=== PATIENT | female | born 2005 | race African-American/Black ===

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

== ENCOUNTER 2025-09-22 17:37 | Emergency (ER) | payer MEDICAID, OTHER ==
[~2025-09-22 17:37] MED LIST: Iopamidol 370 76% 100 ML VIAL ONE
[2025-09-22 19:19] LABS: #Basophils 0.06 10x3/uL (0.0-0.2); #Eosinophils 0.42 10x3/uL (0.0-0.7); #Monocytes 1.12 10x3/uL (0.11-0.59); #Neutrophils 7.85 10x3/uL (1.40-6.50); %Basophils 0.5 % (0.0-1.0); %Eosinophils 3.3 % (0.0-10.0); %Lymphocytes 26.3 % (28.0-48.0); %Monocytes 8.7 % (0.0-4.0); %Neutrophils 60.9 % (31.0-61.0); Hematocrit 39.7 % (36.0-47.0); Hemoglobin 12.7 g/dL (12.0-16.0); Mean Corpuscular Hemoglobin 28.5 pg (25.0-35.0); Mean Corpuscular Volume 89.0 fL (78.0-98.0); Platelet Count 337 10x3/uL (130-400); Red Blood Cell (RBC) Count 4.46 mill/uL (4.00-5.20); White Blood Cell (WBC) Count 12.87 10x3/uL (4.8-10.8)
[2025-09-22 19:34] LABS: Pregnancy Test - Urine (BHCG) Negative (Negative); Pregu Control Background? CLEAR/WHITE (CLR/WHITE); Pregu Control Bar Appear? YES (CONTROL BAR)
[2025-09-22 19:39] LABS: CAUTI Indications for Culture Pelvic or flank pain; Glucose, Urine (Dipstick) Normal (Negative); Leukocyte 250 Leu/uL (Negative); Protein, Urine (Dipstick) Negative (Neg-Trace); RBC/HPF 0-3 HPF (0-3); Specific Gravity, Urine 1.025 (1.002-1.036); WBC/HPF 21-50 HPF (0-3)
[2025-09-22 19:43] LABS: Bacteria/HPF 1+ HPF (None Seen)
[2025-09-22 19:44] LABS: Urine Culture Reflex Yes Yes
[2025-09-22 20:05] LABS: Albumin 4.1 g/dL (3.1-4.5); Chloride 105 mmol/L (98-107); Potassium 3.7 mmol/L (3.5-5.1); Sodium 142 mmol/L (136-145)
[2025-09-22 20:06] LABS: Calcium 9.4 mg/dL (7.8-10.44); Glucose 82 mg/dL (70-105)
[2025-09-22 20:07] LABS: Globulin 3.2 g/dL (2.4-3.5)
[2025-09-22 20:08] LABS: Anion Gap 16 mmol/L (10-20); Carbon Dioxide 25 mmol/L (22-29)
[2025-09-22 20:09] LABS: Alkaline Phosphatase 70 U/L (40-100); Bilirubin, Total 0.2 mg/dL (0.3-1.2)
[2025-09-22 20:10] LABS: BUN (Urea Nitrogen) 14 mg/dL (8.4-21.0); Calc. Creatinine Clearance 0 mL/min (70-130); Lipase 16 U/L (8-78)
[2025-09-22 20:12] LABS: ALT (SGPT) 9 U/L (Less than 34); AST (SGOT) 14 U/L (11-34)
[2025-09-22] MEDS ORDERED: cefTRIAXone (ROCEPHIN) 500 MG VIAL ONE (21:44)
[2025-09-23 00:47] LABS: Chlamydia by PCR, Vaginal Swab DETECTED (NotDetected); GC by PCR, Vaginal Swab DETECTED (NotDetected)
== END 2025-09-22 21:59 | disposition home or self-care (01) ==
LOC: ERS 17:37
DX: N76.0 Acute vaginitis (principal); N39.0 Urinary tract infection, site not specified; J45.909 Unspecified asthma, uncomplicated; Z79.899 Other long term (current) drug therapy
CPT/HCPCS: 74177; 80053; 81001; 81025; 83690; 85025; 87077; 87086; 87480; 87491; 87510; 87591; 87660; 96372; J0696; Q9967